=== PATIENT | female | born 1975 | race Hispanic/Latino ===

== ENCOUNTER 2023-02-08 12:03 | Inpatient (IN) | payer BC, OTHER ==
[~2023-02-08] VITALS: Ht 152.4 cm; Wt 103.5 kg
[2023-02-08] VITALS (13 sets, daily range): BP systolic 122–155; BP diastolic 75–99; PULSE 89–120; RESP 12–20; O2SAT 98–99
[2023-02-08] MEDS ORDERED: LIDOCAINE HCL 400MG/20ML VIAL ONE (13:11)
[2023-02-08] MEDS ORDERED: NITROGLYCERIN 50MG VIAL ONE (13:12)
[2023-02-08] MEDS ORDERED: IOHEXOL 350 MG/ML 100ML INFUS..BTL IV ONE (13:12)
[2023-02-08] MEDS ORDERED: VERAPAMIL HCL 2.5 MG/ML VIAL ONE (13:12)
[2023-02-08] MEDS ORDERED: HEPARIN 10,000 UNIT/10ML (1,000 UNIT/ML) VIAL ONE (13:12)
[2023-02-08] MEDS ORDERED: FENTANYL CITRATE PF 50 MCG/1 ML 2ML VIAL ONE (13:43)
[2023-02-08] MEDS ORDERED: ASPI-1005 PO (13:44)
[2023-02-08] MEDS ORDERED: DILT-36 PO (13:44)
[2023-02-08] MEDS ORDERED: TICA90TA PO (13:44)
[2023-02-08] MEDS ORDERED: ATOR-2 PO (13:44)
[2023-02-08] MEDS ORDERED: MIDAZOLAM HCL 1 MG/ML 2ML VIAL ONE ×2 (13:44→14:09)
[2023-02-08] MEDS ORDERED: IOHEXOL-350 50ML VIAL IV ONE ×2 (14:22→14:33)
[2023-02-08] MEDS ORDERED: HYDRALAZINE 20MG/ML VIAL ONE (14:56)
[2023-02-08] MEDS ORDERED: GLUCAGON 1MG KIT 1 MG ML IM PRN (15:00)
[2023-02-08] MEDS ORDERED: 0.9%NACL 1000ML 1,000 ML IV SCH (15:00)
[2023-02-08] MEDS ORDERED: DEXTROSE 50%-WATER 50 ML DISP.SYRIN IV PRN (15:00)
[2023-02-08 16:12] LABS: HEMATOCRIT 37.3 % (36-48); MEAN CORPUSCULAR HEMOGLOBIN 26.7 pg (27.0-33.0); MEAN CORPUSCULAR HGB CONC 33.2 g/dL (32.0-36.0); MEAN CORPUSCULAR VOLUME 80.4 fL (79-99); RED BLOOD CELL COUNT(AUTO) 4.64 MIL/uL (4.00-5.50); RED CELL DISTRIBUTION WIDTH 13.5 % (11.0-15.5)
[2023-02-08 16:30] LABS: CREATININE 0.9 mg/dL (0.5-1.5); POTASSIUM 3.5 mmol/L (3.5-5.1)
[2023-02-08 16:53] LABS: THYROID STIMULATING HORMONE 1.55 uIU/mL (0.36-3.74)
[2023-02-08] MEDS: INSULIN HUMULIN R 100 UNIT/ML 3ML SQ SCH (20:39)
[2023-02-08] MEDS ORDERED: ACETAMINOPHEN 325 MG TAB PO PRN (23:30)
[2023-02-08] MEDS ORDERED: ACETAMINOPHEN 325 MG TAB ONE (23:31)
[2023-02-09 03:13] VITALS: BP 106/63; PULSE 99; RESP 18
[2023-02-09 04:57] LABS: BASOPHILS # (AUTO) 0.03 K/uL (0.00-0.20); BASOPHILS % (AUTO) 0.4 % (0.0-5.0); EOSINOPHILS # (AUTO) 0.14 K/uL (0.00-0.70); EOSINOPHILS % (AUTO) 1.9 % (0.0-8.0); HEMATOCRIT 35.6 % (36-48); IMMATURE GRANULOCYTE ABSOLUTE 0.03 K/uL (0-1); LYMPHOCYTES # (AUTO) 1.4 K/uL (1.0-4.8); LYMPHOCYTES % (AUTO) 19.2 % (21.0-51.0); MEAN CORPUSCULAR HEMOGLOBIN 26.5 pg (27.0-33.0); MEAN CORPUSCULAR HGB CONC 31.7 g/dL (32.0-36.0); MEAN CORPUSCULAR VOLUME 83.4 fL (79-99); MONOCYTES # (AUTO) 0.6 K/uL (0.1-1.0); MONOCYTES % (AUTO) 7.6 % (3.0-13.0); NEUTROPHILS # (AUTO) 5.2 K/uL (1.8-7.7); NEUTROPHILS % (AUTO) 70.5 % (40.0-77.0); PLATELET COUNT (AUTO) 230 K/uL (130-400); RED BLOOD CELL COUNT(AUTO) 4.27 MIL/uL (4.00-5.50); RED CELL DISTRIBUTION WIDTH 13.4 % (11.0-15.5); WHITE BLOOD COUNT (AUTO) 7.4 K/uL (4.8-10.8)
[2023-02-09 05:08] LABS: ALBUMIN 3.1 g/dL (3.5-5.0); BILIRUBIN,TOTAL 0.9 mg/dL (0.2-1.0); CREATININE 0.8 mg/dL (0.5-1.5); MAGNESIUM 2.1 mg/dL (1.80-2.40); POTASSIUM 3.3 mmol/L (3.5-5.1); TOTAL PROTEIN, SERUM 7.2 g/dL (6.0-8.3)
[2023-02-09] MEDS: INSULIN HUMULIN R 100 UNIT/ML 3ML SQ SCH (05:23)
[2023-02-09] MEDS: KCL 20 MEQ ERTAB PO PRN ×2 (05:49→05:50)
[2023-02-09] MEDS ORDERED: POTASSIUM CHLORIDE 10% ELIXIR 20 MEQ/15 ML UDCUP PO PRN (06:00)
[2023-02-09] MEDS ORDERED: POTASSIUM CHLORIDE 20MEQ/100ML 100 ML IV PRN (06:00)
[2023-02-09] MEDS ORDERED: IPRATROPIUM/ALBUTEROL SULFATE 3 ML SOLUTION IH PRN (06:30)
[2023-02-09] MEDS ORDERED: FAMO20TA8 PO (06:49)
[2023-02-09 07:52] VITALS: BP 126/68; PULSE 100; RESP 16
[2023-02-09 08:00] VITALS: O2SAT 99
[2023-02-09] MEDS ORDERED: FAMOTIDINE 20MG TAB PO SCH (09:00)
[2023-02-09] MEDS ORDERED: DILTIAZEM 120MG SR CAP PO SCH (09:00)
[2023-02-09] MEDS ORDERED: METOPROLOL TARTRATE 25 MG TAB PO SCH (09:00)
[2023-02-09] MEDS ORDERED: ASPIRIN 81 MG EC TAB PO SCH (09:00)
[2023-02-09] MEDS ORDERED: ATORVASTATIN 40 MG TABLET PO SCH (21:00)
[2023-02-09] MEDS ORDERED: NON-FORMULARY MEDICATION 1 EACH (Atorvastatin Calcium 80 MG) PO SCH (21:00)
== END 2023-02-09 10:22 | disposition home or self-care (01) | DRG 281 ==
LOC: 2AH 13:12
PROVIDERS: ADMIT Hospitalist; ATTEND Hospitalist
PROC: 4A023N7 Measurement of Cardiac Sampling and Pressure, Left Heart, Percutaneous Approach (ICD-10-PCS; principal; 2023-02-08)
PROC: B2111ZZ Fluoroscopy of Multiple Coronary Arteries using Low Osmolar Contrast (ICD-10-PCS; 2023-02-08)
DX: I21.4 Non-ST elevation (NSTEMI) myocardial infarction (principal); Z68.41 Body mass index [BMI] 40.0-44.9, adult; E66.01 Morbid (severe) obesity due to excess calories; E11.9 Type 2 diabetes mellitus without complications; I25.10 Atherosclerotic heart disease of native coronary artery without angina pectoris; J45.909 Unspecified asthma, uncomplicated; Z82.49 Family history of ischemic heart disease and other diseases of the circulatory system; Z83.3 Family history of diabetes mellitus
CPT/HCPCS: 36415; 80048; 80053; 80061; 82948; 83735; 84443; 85025; 85027; 85347; 92978; 93458; 99156; 99157; C1769; G0378; J0360; J1644; J2250; J3010; J3490; Q9967; A4600; A4649; C1753; C1887; C1894; Q9965